=== PATIENT | female | born 1965 | race Two or more races ===

== ENCOUNTER 2017-02-04 10:35 | Inpatient (IN) | payer BC, OTHER ==
[2017-02-04 10:44] VITALS: BMI 29.2
--- NOTE | 2017-02-04 11:17 | EKG ---
Test Reason : Blood Pressure : / mmHG Vent. Rate : 110 BPM Atrial Rate : 110 BPM P-R Int : 142 ms QRS Dur : 082 ms QT Int : 316 ms P-R-T Axes : 052 -06 -03 degrees QTc Int : 427 ms SINUS TACHYCARDIA POSSIBLE LEFT ATRIAL ENLARGEMENT LEFT VENTRICULAR HYPERTROPHY NONSPECIFIC T WAVE ABNORMALITY ABNORMAL ECG WHEN COMPARED WITH ECG OF 01-MAY-2015 12:09, NO SIGNIFICANT CHANGE WAS FOUND Confirmed by TD DIEZ, AGA ([id number]) on 02/04/2017 11:16:49 AM Referred By: Confirmed By:AGA APPIAH MD
--- NOTE | 2017-02-04 11:20 | PDOC ---
*Physical Exam - Vital Signs Last Vital Signs Temp Pulse Resp BP Pulse Ox 98.7 F 120 H 18 131/84 100 02/04/17 10:40 02/04/17 10:40 02/04/17 10:40 02/04/17 10:40 02/04/17 10:40 ED Treatment Course - LABORATORY CBC & Chemistry Diagram: 02/05/17 06:00 02/05/17 06:00 Medical Decision Making - Medical Decision Making 02/04/17 11:19 Patient seen and evaluated with the nurse practitioner. I agree with the overall evaluation, assessment, and management with the following summary of visit: 51y/o F with intermittent chest pain and also n/v/d. Agree with workup and management as outlined, new TWI noted on EKG so will need cardiac workup. *DC/Admit/Observation/Transfer Diagnosis at time of Disposition: Chest pain Qualifiers: Chest pain type: unspecified Qualified Code(s): R07.9 - Chest pain, unspecified Vomiting Qualifiers: Vomiting type: unspecified Vomiting Intractability: unspecified Nausea presence : with nausea Qualified Code(s): R11.2 - Nausea with vomiting, unspecified - Discharge Dispostion Disposition: HOME Condition at time of disposition: Good - Prescriptions
[2017-02-04 11:30] LABS: BASOPHIL 0.3 % (0-2.0); EOSINOPHIL 0.3 % (0-4.5); MCH 29.7 pg (25.7-33.7); MCHC 33.1 g/dl (32.0-36.0); MEAN CELL VOLUME 89.7 fl (80-96); MEAN PLT VOLUME 8.4 fl (7.5-11.1); NEUTROPHILS 82.8 % (42.8-82.8); PLATELET COUNT 245 K/MM3 (134-434); RDW 13.9 % (11.6-15.6); WHITE BLOOD COUNT 11.1 K/mm3 (4.0-10.0)
--- NOTE | 2017-02-04 11:33 | PDOC ---
History of Present Illness - General Chief Complaint: Nausea/Vomiting Stated Complaint: CHEST DISCOMFORT/ HEADACHE/BACK PAIN Time Seen by Provider: 02/04/17 10:47 - History of Present Illness Initial Comments: 02/04/17 11:29 CHIEF COMPLAINT: chest pain, NVD HISTORY OF PRESENT ILLNESS: 51 yo F with hx of HTN, HLD, and migraines presents to ED with chest pain x 2 days and NVD since last night. Patient states that two nights ago she felt "sharp pain to her chest and shooting pain to my left arm, which got better but then came back last night." She reports that she had 3 episodes of vomiting since last night as well as multiple episodes of diarrhea. LMP two months ago No recent travel or sick contacts. PAST MEDICAL HISTORY: Father [place] @ 75, mother [place] @81 FAMILY HISTORY: Denies SOCIAL HISTORY: Denies tobacco, alcohol, illicit drug use. SURGICAL HISTORY: Denies ALLERGIES: No known drug allergies REVIEW OF SYSTEMS General/Constitutional: Denies fever or chills. Denies weakness, weight change. HEENT: Denies change in vision. Denies ear pain or discharge. Denies sore throat. Cardiovascular: Chest pain x 2 days. Denies shortness of breath. Respiratory: Denies cough, wheezing, or hemoptysis. Gastrointestinal:Vomiting and diarrhea since last night. Denies rectal bleeding. Genitourinary: Denies dysuria, frequency, or change in urination. Musculoskeletal: Denies joint or muscle swelling or pain. Denies neck or back pain. Skin and breasts: Denies rash or easy bruising. Neurologic: Denies headache, vertigo, loss of consciousness, or loss of sensation. PHYSICAL EXAM General Appearance: Well-appearing, appropriately dressed. No apparent distress. HEENT: EOMI, PERRLA, normal ENT inspection, normal voice, TMs normal, pharynx normal. No conjunctival pallor. No photophobia, scleral icterus. Neck: Supple. Trachea midline. No tenderness, rigidity, carotid bruit, stridor , lymphadenopathy, or thyromegaly. Respiratory/Chest: Lungs CTAB. Cardiovascular: RRR. S1, S2. Vascular Pulses: Dorsalis-Pedis (R): 2+, Dorsalis-Pedis (L): 2+ Gastrointestinal/Abdominal: Normal bowel sounds. Abdomen soft, non-distended. No tenderness or rebound tenderness. No organomegaly, pulsatile mass, guarding , hernia, hepatomegaly, splenomegaly. Musculoskeletal/Extremities: Normal inspection. FROM of all extremities, normal capillary refill. Pelvis Stable. No CVA tenderness. No tenderness to extremities, pedal edema, swelling, erythema or deformity. Integumentary: Appropriate color, dry, warm. 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 Fully oriented, alert. Appropriate mood/affect. Motor strength 5/5. No appreciable EOM palsy, facial droop or sensory deficit. 02/04/17 11:32 Past History - Past Medical History Allergies/Adverse Reactions: Allergies Allergy/AdvReac Type Severity Reaction Status Date / Time No Known Allergies Allergy Verified 02/04/17 10:41 Home Medications: Ambulatory Orders Atorvastatin Ca [Lipitor] 20 mg PO HS 12/22/14 Losartan 50Mg/Hctz 12.5MG [Hyzaar -] 1 tab PO DAILY 12/22/14 Alprazolam [Xanax] 0.5 mg PO BID #20 tablet 05/01/15 Amitriptyline HCl [Elavil -] 25 mg PO DAILY 02/04/17 HTN: Yes Hypercholesterolemia: Yes Psychiatric Problems: Yes (ANXIETY.) - Surgical History Abdominal Surgery: Yes - Psycho/Social/Smoking Cessation Hx Anxiety: Yes Suicidal Ideation: No Smoking History: Never smoked Hx Alcohol Use: Yes (weekends.) Drug/Substance Use Hx: No Substance Use Type: Alcohol *Physical Exam - Vital Signs Last Vital Signs Temp Pulse Resp BP Pulse Ox 98.7 F 120 H 18 131/84 100 02/04/17 10:40 02/04/17 10:40 02/04/17 10:40 02/04/17 10:40 02/04/17 10:40 Heart Score/ECG Review - History History: Moderately suspicious - Electrocardiogram EKG: Non specific repolarization disturbance - Age Age: 45-65 - Risk Factors Risk Factors Heart Score: Yes Hx Hypercholesterolemia, Yes Hx Hypertension, Yes Positive family hx of cardiac disease Based on the list above the patient has:: >/=3 risk factors or Hx atherosclerotic disease - Troponin Troponin: </= normal limit - Score Heart Score - Total: 5 ED Treatment Course - LABORATORY CBC & Chemistry Diagram: 02/04/17 11:20 02/04/17 11:20 - ADDITIONAL ORDERS Additional order review: Laboratory Results 02/04/17 02/04/17 02/04/17 11:20 11:20 11:00 INR 1.05 Sodium 138 Potassium 4.0 D Chloride 100 Carbon Dioxide 29 D Anion Gap 9 BUN 10 Creatinine 0.8 Creat Clearance w eGFR > 60 Random Glucose 103 D Calcium 9.0 Magnesium 2.2 Total Bilirubin 0.5 D AST 20 D ALT 36 D Alkaline Phosphatase 65 Creatine Kinase 64 Troponin I < 0.02 Total Protein 8.0 Albumin 3.8 Lipase 86 Urine HCG, Qual Negative 02/04/17 11:20 RBC 4.76 MCV 89.7 MCHC 33.1 RDW 13.9 MPV 8.4 Neutrophils % 82.8 D Lymphocytes % 9.9 D Monocytes % 6.7 Eosinophils % 0.3 Basophils % 0.3 - RADIOLOGY Radiology Studies Ordered: Category Date Time Status CHEST PA & LAT [RAD] Stat Radiology 02/04/17 11:01 Taken Medical Decision Making - Medical Decision Making 02/04/17 11:32 51 yo F with hx of HTN, HLD, and migraines presents to ED with chest pain x 2 days and NVD since last night. VS remarkable for HR 120. -EKG, CXR -CBC, CMP, Mg, PT/INR, cardiac profile EKG with new T wave inversions in V3. HEART score - 5 Labs: WBC 11.1, otherwise unremarkable Will admit to obs 02/04/17 12:24 Paged PCP MD Brar. Awaiting CB. 02/04/17 12:42 Discussed case with covering MD Parikh, who accepts patient to inpatient service. Cards consult placed. *DC/Admit/Observation/Transfer Diagnosis at time of Disposition: Chest pain Qualifiers: Chest pain type: unspecified Qualified Code(s): R07.9 - Chest pain, unspecified Vomiting Qualifiers: Vomiting type: unspecified Vomiting Intractability: unspecified Nausea presence : with nausea Qualified Code(s): R11.2 - Nausea with vomiting, unspecified - Discharge Dispostion Admit: Yes - Referrals Referrals: Monica Brar MD [Primary Care Provider] - - Patient Instructions - Post Discharge Activity
[2017-02-04 11:51] LABS: INR 1.05 (0.82-1.09); PROTHROMBIN TIME (PATIENT) 11.6 SEC (9.98-11.88)
[2017-02-04 12:01] LABS: ALBUMIN 3.8 g/dl (3.4-5.0); ANION GAP 9 (8-16); BILIRUBIN,TOTAL 0.5 mg/dL (0.2-1.0); CO2 29 mmol/L (21-32); CREATININE 0.8 mg/dL (0.55-1.02); GLUCOSE,RANDOM 103 mg/dL (74-106); MAGNESIUM 2.2 mg/dL (1.8-2.4); SGOT/AST 20 U/L (15-37); SGPT/ALT 36 U/L (12-78)
[2017-02-04 12:04] LABS: ALK PHOS 65 U/L (45-117); TROPONIN I < 0.02 ng/ml (0.00-0.05)
[2017-02-04] MEDS ORDERED: SODIUM CHLORIDE 0.9% 1000 ML INFUS.BAG IV PRN (13:30)
[2017-02-04] MEDS ORDERED: ACETAMINOPHEN 325 MG TABLET (FP) PO ONE (13:37)
[2017-02-04] MEDS ORDERED: ASPIRIN 81 MG CHEWABLE TABLETS PO ONE (13:37)
[2017-02-04] MEDS ORDERED: ACETAMINOPHEN 325 MG TABLET (FP) ONE (13:45)
[2017-02-04] MEDS ORDERED: ASPIRIN 81 MG CHEWABLE TABLETS ONE (13:45)
[2017-02-04 14:07] LABS: URINE APPEARANCE CLEAR; URINE BILIRUBIN NEGATIVE (NEGATIVE); URINE COLOR YELLOW; URINE GLUCOSE (UA) NEGATIVE (NEGATIVE); URINE KETONE NEGATIVE (NEGATIVE); URINE LEUK ESTERASE NEGATIVE (NEGATIVE); URINE NITRITE NEGATIVE (NEGATIVE); URINE PROTEIN NEGATIVE (NEGATIVE); URINE UROBILINOGEN NEGATIVE E.U./dl (0.2-1.0)
[2017-02-04 14:09] LABS: URINE BLOOD 2+ (NEGATIVE)
[2017-02-04 14:10] LABS: URINE MUCUS RARE; URINE RBC <1 /hpf (0-3); URINE WBC <1 /hpf (3-5)
[2017-02-04 14:18] LABS: VENOUS PH 7.47 (7.32-7.42)
[2017-02-04] MEDS ORDERED: VANCOMYCIN 1,000 MG in DEXTROSE 5%-WATER - 250 ML IVPB ONE (14:20)
[2017-02-04 14:22] LABS: INR 1.08 (0.82-1.09); PROTHROMBIN TIME (PATIENT) 11.9 SEC (9.98-11.88)
[2017-02-04] MEDS ORDERED: CEFTRIAXONE 1 GM in DEXTROSE 5%-WATER - 50 ML IVPB SCH (14:30)
[2017-02-04] MEDS ORDERED: CEFTRIAXONE 50 ML IVPB SCH (15:26)
[2017-02-04] MEDS ORDERED: VANCOMYCIN 1 GRAM (PRE-DOCKED) 250 ML IVPB ONE (16:00)
[2017-02-04] MEDS ORDERED: PATIENT'S OWN MEDICATION (NON-FORMULARY) (Alprazolam [Xanax] 0.5 MG) PO PRN (16:08)
[2017-02-04] MEDS ORDERED: SODIUM CHLORIDE 0.45% 1,000 ML IV SCH (16:15)
--- NOTE | 2017-02-04 16:21 | HP ---
Admitting History and Physical - Primary Care Physician PCP: Monica Brar - Admission Chief Complaint: chest pain History of Present Illness: Developed left arm pain and retrosternal pressure like chest pain almost constant ~2days ago. Last night became nauseated and vomited 4 times with associated watery diarrhea 7 times. In ER febrile, c/o diffuse muscle aches. Of note patient came in because she was concerned about her chest pains, has extensive family h/o CAD. History Source: Patient Limitations to Obtaining History: No Limitations - Past Medical History Cardiovascular: Yes: HTN, Hyperlipdemia ...: No Psych: Yes: Anxiety - Past Surgical History Additional Past Surgical History: left shoulder arthroscopic surgery,several years ago - Smoking History Smoking history: Never smoked - Alcohol/Substance Use Hx Alcohol Use: Yes (weekends.) - Social History ADL: Independent History of Recent Travel: No Home Medications - Allergies Allergies/Adverse Reactions: Allergies Allergy/AdvReac Type Severity Reaction Status Date / Time No Known Allergies Allergy Verified 02/04/17 10:41 - Home Medications Home Medications: Ambulatory Orders Atorvastatin Ca [Lipitor] 20 mg PO HS 12/22/14 Losartan 50Mg/Hctz 12.5MG [Hyzaar -] 1 tab PO DAILY 12/22/14 Alprazolam [Xanax] 0.5 mg PO BID #20 tablet 05/01/15 Amitriptyline HCl [Elavil -] 25 mg PO DAILY 02/04/17 Family Disease History - Family Disease History Family Disease History: Diabetes: Brother, Sister, Heart Disease: Father, Mother , Brother, Sister Review of Systems - Review of Systems Constitutional: reports: Chills, Fever Cardiovascular: reports: Chest Pain Respiratory: denies: Cough, SOB on Exertion, Wheezing Gastrointestinal: reports: Diarrhea, Nausea, Vomiting. denies: Abdominal Pain, Dysphagia, Indigestion, Melena Genitourinary: denies: No Symptoms, Burning Breasts: denies: No Symptoms Reported Musculoskeletal: reports: Back Pain (chronic lower back) Neurological: reports: No Symptoms Endocrine: reports: No Symptoms Physical Examination Vital Signs: Vital Signs Temperature 101.2 F H 02/04/17 14:57 Pulse Rate 112 H 02/04/17 14:57 Respiratory Rate 18 02/04/17 14:57 Blood Pressure 127/77 02/04/17 14:57 O2 Sat by Pulse Oximetry (%) 96 02/04/17 14:57 Constitutional: Yes: Well Nourished, No Distress Eyes: Yes: Conjunctiva Clear HENT: Yes: Normocephalic Neck: Yes: Trachea Midline Cardiovascular: Yes: Regular Rate and Rhythm Respiratory: Yes: CTA Bilaterally Gastrointestinal: Yes: Normal Bowel Sounds, Soft. No: Tenderness, Epigastrium, Tenderness, Rebound Renal/: Yes: WNL Breast(s): Yes: WNL Musculoskeletal: Yes: WNL Extremities: Yes: WNL Edema: No Peripheral Pulses WNL: Yes Integumentary: Yes: WNL Neurological: Yes: WNL Imaging - Results Chest X-ray: Report Reviewed EKG: Image Reviewed (NSSTTwave changes) Problem List - Problems (1) Chest pain Code(s): R07.9 - CHEST PAIN, UNSPECIFIED Qualifiers: Chest pain type: unspecified Qualified Code(s): R07.9 - Chest pain, unspecified (2) Vomiting Code(s): R11.10 - VOMITING, UNSPECIFIED Qualifiers: Vomiting type: unspecified Vomiting Intractability: unspecified Nausea presence: with nausea Qualified Code(s): R11.2 - Nausea with vomiting , unspecified (3) Anxiety Code(s): F41.9 - ANXIETY DISORDER, UNSPECIFIED (4) Diarrhea Code(s): R19.7 - DIARRHEA, UNSPECIFIED Assessment/Plan likely viral gastroenteritis iv hydration repeat lactic bhavna with next cardiac enzymes ID/Card consult requested prn tylenol
[2017-02-04 19:26] LABS: TROPONIN I < 0.02 ng/ml (0.00-0.05)
[2017-02-04] MEDS: AMITRIPTYLINE HCL 25 MG TABLET (FP) PO SCH (21:04)
[2017-02-04] MEDS: ACETAMINOPHEN 325 MG TABLET (FP) PO PRN (21:06)
[2017-02-04] MEDS: ZOLPIDEM TARTRATE 5 MG TABLET PO PRN (21:39)
[2017-02-05] MEDS: ALPRAZolam 0.25 MG TABLET PO PRN ×2 (00:23→22:22)
[2017-02-05 08:37] LABS: BASOPHIL 0.5 % (0-2.0); EOSINOPHIL 1.3 % (0-4.5); MCH 30.2 pg (25.7-33.7); MCHC 33.1 g/dl (32.0-36.0); MEAN CELL VOLUME 91.4 fl (80-96); MEAN PLT VOLUME 9.2 fl (7.5-11.1); NEUTROPHILS 67.8 % (42.8-82.8); PLATELET COUNT 203 K/MM3 (134-434); RDW 13.9 % (11.6-15.6); WHITE BLOOD COUNT 7.2 K/mm3 (4.0-10.0)
[2017-02-05 08:57] LABS: ANION GAP 12 (8-16); BILIRUBIN,TOTAL 0.2 mg/dL (0.2-1.0); CALCIUM 8.2 mg/dL (8.5-10.1); CO2 24 mmol/L (21-32); COCKROFT - GAULT 117.8015; CREATININE 0.6 mg/dL (0.55-1.02); GLUCOSE,RANDOM 97 mg/dL (74-106); SGOT/AST 16 U/L (15-37); SGPT/ALT 29 U/L (12-78); TOT PROT 6.4 g/dl (6.4-8.2)
[2017-02-05 09:00] LABS: ALK PHOS 55 U/L (45-117); TROPONIN I < 0.02 ng/ml (0.00-0.05)
[2017-02-05] MEDS ORDERED: ACETAMINOPHEN WITH CODEINE 300MG/30MG TABLET PO PRN (10:00)
--- NOTE | 2017-02-05 10:03 | PN ---
Progress Note (short form) - Note Progress Note: overall better, still with low grade fever, but less diarrhea, less pain. Vital Signs Period Temp Pulse Resp BP Sys/Monreal Pulse Ox Last 24 Hr 98.7 F-102.6 F 100-123 16-20 106-131/64-84 96-100 S1 S2 RRR Lung cta Abd soft NT +BS no edema Imp diarrhea/fever-viral? chest pain atypical with febrile illness-r/o pericarditis Plan iv fluids check echo in am Problem List - Problems (1) Chest pain Code(s): R07.9 - CHEST PAIN, UNSPECIFIED Qualifiers: Chest pain type: unspecified Qualified Code(s): R07.9 - Chest pain, unspecified (2) Vomiting Code(s): R11.10 - VOMITING, UNSPECIFIED Qualifiers: Vomiting type: unspecified Vomiting Intractability: unspecified Nausea presence: with nausea Qualified Code(s): R11.2 - Nausea with vomiting , unspecified (3) Anxiety Code(s): F41.9 - ANXIETY DISORDER, UNSPECIFIED (4) Diarrhea Code(s): R19.7 - DIARRHEA, UNSPECIFIED
[2017-02-05] MEDS: AMITRIPTYLINE HCL 25 MG TABLET (FP) PO SCH (10:19)
[2017-02-05] MEDS: SODIUM CHLORIDE 0.45%/POT 1,000 ML IV SCH (10:20)
--- NOTE | 2017-02-05 13:21 | CON.CARD ---
Consult Consult Specialty:: Cardiology Referred by:: Dr. Dupree Reason for Consultation:: Cardiac evaluation - History of Present Illness Chief Complaint: Chest pain History of Present Illness: Patient is a 51 year old female with underlying history of HTN, hyperlipidemia who presents to ED with chest pain, but also now with bouts of diarrhea, vomiting and fever. ECG demonstrates sinus tachycardia. She denies paroxysmal nocturnal dyspnea or orthopnea. Denies headache or lightheadedness at this time. No syncopal episode - History Source History Provided By: Patient, Medical Record Limitations to Obtaining History: No Limitations - Past Medical History Cardio/Vascular: Yes: HTN, Hyperlipdemia ...: No Psych: Yes: Anxiety - Past Surgical History Additional Surgical History: Rotator cuff surgery - Alcohol/Substance Use Hx Alcohol Use: Yes (weekends.) - Smoking History Smoking history: Never smoked - Social History ADL: Independent History of Recent Travel: No Home Medications - Allergies Allergies/Adverse Reactions: Allergies Allergy/AdvReac Type Severity Reaction Status Date / Time No Known Allergies Allergy Verified 02/04/17 10:41 - Home Medications Home Medications: Ambulatory Orders Atorvastatin Ca [Lipitor] 20 mg PO HS 12/22/14 Losartan 50Mg/Hctz 12.5MG [Hyzaar -] 1 tab PO DAILY 12/22/14 Alprazolam [Xanax] 0.5 mg PO BID #20 tablet 05/01/15 Amitriptyline HCl [Elavil -] 25 mg PO DAILY 02/04/17 Family Disease History - Family Disease History Family Disease History: Diabetes: Brother, Sister, Heart Disease: Father, Mother , Brother, Sister Review of Systems - Review of Systems Constitutional: reports: Fever. denies: Chills Cardiovascular: reports: Chest Pain. denies: Palpitations, Shortness of Breath Respiratory: denies: Cough, Hemoptysis, Orthopnea, PND, SOB Gastrointestinal: reports: Diarrhea. denies: Abdominal Pain, Constipation, Melena, Nausea, Rectal Bleeding, Vomiting Genitourinary: denies: Dysuria Neurological: denies: Dizziness, Headache, Syncope, Tremors Vital Signs: Vital Signs Temperature 100.6 F H 02/05/17 09:00 Pulse Rate 100 H 02/05/17 05:00 Respiratory Rate 16 02/05/17 05:00 Blood Pressure 109/73 02/05/17 05:00 O2 Sat by Pulse Oximetry (%) 96 02/04/17 23:18 Neck: Yes: Lymphadenopathy Respiratory: Yes: CTA Bilaterally. No: Rhonchi Gastrointestinal: Yes: Normal Bowel Sounds, Soft. No: Tenderness Cardiovascular: Yes: Regular Rate and Rhythm JVD: No Carotid Bruit: No PMI: Displaced Heart Sounds: Yes: S1, S2. No: Gallop Murmur: No: Systolic Murmur, Diastolic Murmur Edema: No - Other Data Labs, Other Data: CBC, BMP 02/05/17 06:00 02/05/17 06:00 INR, PTT INR 1.08 (0.82-1.09) 02/04/17 14:00 Troponin, BNP 02/04/17 02/05/17 18:56 06:00 Troponin I < 0.02 < 0.02 Sinus tachycardia Imaging - Results Chest X-ray: Report Reviewed (Unremarkable) EKG: Report Reviewed Problem List - Problems (1) Chest pain Code(s): R07.9 - CHEST PAIN, UNSPECIFIED Qualifiers: Chest pain type: unspecified Qualified Code(s): R07.9 - Chest pain, unspecified (2) Diarrhea Code(s): R19.7 - DIARRHEA, UNSPECIFIED Qualifiers: Diarrhea type: unspecified type Qualified Code(s): R19.7 - Diarrhea , unspecified (3) Anxiety Code(s): F41.9 - ANXIETY DISORDER, UNSPECIFIED Assessment/Plan 1. Chest pain, rule out CAD 2. HTN 3. Hyperlipidemia 4. Diarrhea and fever, possible viral 5. Anxiety PLAN: 1. Antibiotic coverage 2. Hydration 3. Transthoracic echocardiography to assess LV and valvular function Further plans are to follow Frantz Arredondo MD
--- NOTE | 2017-02-05 15:02 | PN ---
Progress Note (short form) - Note Progress Note: ID Consult dictated Acute gastroenteritis Chest pain syndrome Obtain cultures, stool studies Empiric ceftriaxone
--- NOTE | 2017-02-05 15:44 | CONS ---
DATE OF CONSULTATION: DATE OF DICTATION: 02/05/2017 The patient is a 51-year-old female evaluated for nausea, vomiting, diarrhea, and fever. The patient reports a 1-week history of nausea, vomiting, and nonbloody diarrhea. She developed chest pain syndrome 2 days prior to admission. She presented to the emergency room, where she was noted to have fever of 102.6. She also complained of some muscle aches. The patient has had recurrent episodes of vomiting of gastric contents and nonbloody diarrhea. She reports having 4 loose bowel movements today so far. She denies any hematemesis or vomiting of rosalinda red blood. No melena or hematochezia. She has some crampy abdominal discomfort diffusely. The patient lives at home with her , who is well. He does not have any gastrointestinal symptoms. No known ill contacts. She has not eaten recently at outdoor venues. She denies any travel. No recent antibiotic usage. 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 Past medical history positive for hyperlipidemia, hypertension, migraine headaches. No known allergies. MEDICATIONS: Lipitor, Hyzaar, Xanax, Elavil. SOCIAL HISTORY: Lives at home with her . She is a nonsmoker. Occasional EtOH. SYSTEMS REVIEW: Neurologic: No loss of consciousness, seizure activity, focal weakness. Cardiac: As per HPI. Respiratory: Negative cough or sputum production. Gastrointestinal: As per HPI. Genitourinary: Negative for urinary tract infection. LABORATORY DATA: White count 7.2, neutrophils 67, lymphocytes 20, monocytes 10, eosinophil 1. BUN 5, creatinine 0.6. Urinalysis: Less than 1 white cell, lactic acid 2.6. Liver enzymes normal. Cultures pending. PHYSICAL EXAMINATION: General: She is awake and alert. She is not acutely toxic appearing. Vital Signs: Temperature 100.6. T-max 102.6. Blood pressure 109/73. Pulse 100, regular. Respirations 16 per minute. ENT: Sclerae anicteric. Dry mucous membranes. Heart Sounds: S1, S2. Lungs: Clear. Abdomen: Soft. No tenderness elicited. No mass, rebound or rigidity. Extremities: Negative for edema. IMPRESSION: 1. Acute gastroenteritis. 2. Acute chest pain syndrome. Blood cultures have been obtained. Obtain stool for culture and sensitivity, ova and parasites, and C. difficile, stool for rotavirus and Norovirus. Empiric coverage of enteric pathogens with ceftriaxone pending culture results. Will follow. Thank you for the kind referral. RADHA GONCALVES M.D. [id number]
[2017-02-05] MEDS: CEFTRIAXONE 50 ML IVPB SCH (16:11)
[2017-02-05] MEDS: ACETAMINOPHEN 325 MG TABLET (FP) PO PRN (17:11)
[2017-02-05] MEDS: ZOLPIDEM TARTRATE 5 MG TABLET PO PRN (20:18)
[2017-02-05] MEDS ORDERED: AMITRIPTYLINE HCL 25 MG TABLET (FP) PO SCH (22:00)
--- NOTE | 2017-02-06 00:06 | EKG ---
Test Reason : Blood Pressure : / mmHG Vent. Rate : 098 BPM Atrial Rate : 098 BPM P-R Int : 144 ms QRS Dur : 086 ms QT Int : 346 ms P-R-T Axes : 053 000 000 degrees QTc Int : 441 ms NORMAL SINUS RHYTHM NORMAL ECG WHEN COMPARED WITH ECG OF 04-FEB-2017 10:51, NONSPECIFIC T WAVE ABNORMALITY NO LONGER EVIDENT IN ANTEROLATERAL LEADS Confirmed by TD DIEZ, AGA ([id number]) on 02/06/2017 12:06:09 AM Referred By: Meng GRANT Confirmed By:AGA APPIAH MD
[2017-02-06] MEDS: CEFTRIAXONE 50 ML IVPB SCH (09:53)
[2017-02-06] MEDS: ACETAMINOPHEN 325 MG TABLET (FP) PO PRN (09:54)
[2017-02-06] MEDS: SODIUM CHLORIDE 0.45%/POT 1,000 ML IV SCH (09:54)
--- NOTE | 2017-02-06 11:35 | PN ---
Progress Note, Physician Chief Complaint: Feels better History of Present Illness: Patient was seen and examined. Awake and alert. Chart was reviewed Denies chest pain, SOB or palpitations. - Current Medication List Current Medications: Active Medications Acetaminophen (Tylenol -) 650 mg PO Q4H PRN PRN Reason: FEVER OR PAIN Last Admin: 02/06/17 09:54 Dose: 650 mg Acetaminophen/Codeine Phosphate (Tylenol # 3 -) 1 tab PO Q6H PRN PRN Reason: FEVER OR PAIN Last Admin: 02/05/17 10:16 Dose: 1 tab Alprazolam (Xanax -) 0.5 mg PO Q12H PRN Last Admin: 02/05/17 22:22 Dose: 0.5 mg Amitriptyline HCl (Elavil -) 25 mg PO HS [facility] Last Admin: 02/05/17 21:11 Dose: 25 mg Potassium Chloride/Sodium Chloride (1/2ns+20meq Kcl) 1,000 mls @ 75 mls/hr IV ASDIR [facility] Last Admin: 02/06/17 09:54 Dose: 75 mls/hr Ceftriaxone Sodium (Rocephin 1gm Ivpb (Pre-Docked)) 50 mls @ 100 mls/hr IVPB DAILY [facility] Last Admin: 02/06/17 09:53 Dose: 100 mls/hr Zolpidem Tartrate (Ambien -) 5 mg PO HS PRN PRN Reason: INSOMNIA Last Admin: 02/05/17 20:18 Dose: 5 mg - Objective Vital Signs: Vital Signs Temperature 98.9 F 02/06/17 08:00 Pulse Rate 90 02/06/17 08:00 Respiratory Rate 16 02/06/17 08:00 Blood Pressure 117/69 02/06/17 08:00 O2 Sat by Pulse Oximetry (%) 98 02/05/17 22:48 Neck: Yes: Supple Cardiovascular: Yes: Regular Rate and Rhythm, S1, S2 Respiratory: Yes: CTA Bilaterally Gastrointestinal: Yes: Normal Bowel Sounds, Soft. No: Tenderness Edema: No Additional Findings/Remarks: - Review of Systems Constitutional: reports: Fever. denies: Chills Cardiovascular: reports: Chest Pain. denies: Palpitations, Shortness of Breath Respiratory: denies: Cough, Hemoptysis, Orthopnea, PND, SOB Gastrointestinal: reports: Diarrhea. denies: Abdominal Pain, Constipation, Melena, Nausea, Rectal Bleeding, Vomiting Genitourinary: denies: Dysuria Neurological: denies: Dizziness, Headache, Syncope, Tremors Labs: CBC, BMP 02/05/17 06:00 02/05/17 06:00 Problem List - Problems (1) Chest pain Code(s): R07.9 - CHEST PAIN, UNSPECIFIED Qualifiers: Chest pain type: unspecified Qualified Code(s): R07.9 - Chest pain, unspecified (2) Diarrhea Code(s): R19.7 - DIARRHEA, UNSPECIFIED Qualifiers: Diarrhea type: unspecified type Qualified Code(s): R19.7 - Diarrhea , unspecified (3) Anxiety Code(s): F41.9 - ANXIETY DISORDER, UNSPECIFIED Assessment/Plan 1. Chest pain - atypical 2. HTN 3. Hyperlipidemia 4. Diarrhea and fever, probable gastroenteritis ?viral 5. Anxiety PLAN: 1. Antibiotic coverage 2. Hydration 3. Transthoracic echocardiography to assess LV and valvular function 4. ID input noted Further plans are to follow Frantz Arredondo MD
[2017-02-06 14:22] VITALS: BP 106/66; PULSE 85; TEMP 98.5
--- NOTE | 2017-02-06 14:29 | DS ---
Physical Examination Vital Signs: Vital Signs Temperature 98.5 F 02/06/17 14:00 Pulse Rate 85 02/06/17 14:00 Respiratory Rate 20 02/06/17 14:00 Blood Pressure 106/66 02/06/17 14:00 O2 Sat by Pulse Oximetry (%) 98 02/05/17 22:48 Constitutional: Yes: No Distress, Calm Eyes: Yes: EOM Intact HENT: Yes: Normocephalic Neck: Yes: Trachea Midline Cardiovascular: Yes: Regular Rate and Rhythm Respiratory: Yes: CTA Bilaterally Gastrointestinal: Yes: Normal Bowel Sounds, Soft Edema: No Peripheral Pulses WNL: Yes Integumentary: Yes: WNL ...Motor Strength: WNL Labs: CBC, BMP 02/05/17 06:00 02/05/17 06:00 Discharge Summary Reason For Visit: CHEST PAIN/ VOMITTING Current Active Problems Chest pain (Acute) Diarrhea (Acute) Vomiting (Acute) Hospital Course: Admitted for atypical chest pains, serial cardiac enzymes and EKG and echo were normal. Incidentally developed nausea, vomiting, diarrhea and high grade fevers, improved with iv ceftriaxone and hydration. Feels much better today, medically stable to dc home with outpt f/up. Recommend outpt screening colonoscopy once recovered in about 1 month. Condition: Good - Instructions Diet, Activity, Other Instructions: dr conley within 1 week no-dairy bland diet Referrals: Monica Conley MD [Primary Care Provider] - Disposition: HOME - Home Medications Comprehensive Discharge Medication List: Ambulatory Orders Atorvastatin Ca [Lipitor] 20 mg PO HS 12/22/14 Losartan 50Mg/Hctz 12.5MG [Hyzaar -] 1 tab PO DAILY 12/22/14 Alprazolam [Xanax] 0.5 mg PO BID #20 tablet 05/01/15 Amitriptyline HCl [Elavil -] 25 mg PO DAILY 02/04/17 levaquin 500 metronidazole 500 tid for 5 more days
--- NOTE | 2017-02-06 14:34 | PN ---
Progress Note, Physician History of Present Illness: Awake,alert No c/o chest pain No N/V On loose BM today Temps down- afebrile - Current Medication List Current Medications: Active Medications Acetaminophen (Tylenol -) 650 mg PO Q4H PRN PRN Reason: FEVER OR PAIN Last Admin: 02/06/17 09:54 Dose: 650 mg Acetaminophen/Codeine Phosphate (Tylenol # 3 -) 1 tab PO Q6H PRN PRN Reason: FEVER OR PAIN Last Admin: 02/05/17 10:16 Dose: 1 tab Alprazolam (Xanax -) 0.5 mg PO Q12H PRN Last Admin: 02/05/17 22:22 Dose: 0.5 mg Amitriptyline HCl (Elavil -) 25 mg PO HS CECELIA Last Admin: 02/05/17 21:11 Dose: 25 mg Potassium Chloride/Sodium Chloride (1/2ns+20meq Kcl) 1,000 mls @ 75 mls/hr IV [facility] Last Admin: 02/06/17 09:54 Dose: 75 mls/hr Ceftriaxone Sodium (Rocephin 1gm Ivpb (Pre-Docked)) 50 mls @ 100 mls/hr IVPB DAILY [facility] Last Admin: 02/06/17 09:53 Dose: 100 mls/hr Zolpidem Tartrate (Ambien -) 5 mg PO HS PRN PRN Reason: INSOMNIA Last Admin: 02/05/17 20:18 Dose: 5 mg - Objective Vital Signs: Vital Signs Temperature 98.5 F 02/06/17 14:00 Pulse Rate 85 02/06/17 14:00 Respiratory Rate 20 02/06/17 14:00 Blood Pressure 106/66 02/06/17 14:00 O2 Sat by Pulse Oximetry (%) 98 02/05/17 22:48 Constitutional: Yes: No Distress Eyes: Yes: Conjunctiva Clear Cardiovascular: Yes: Regular Rate and Rhythm, S1, S2 Respiratory: Yes: CTA Bilaterally Gastrointestinal: Yes: Normal Bowel Sounds, Soft. No: Tenderness Extremities: Yes: Other Labs: CBC, BMP 02/05/17 06:00 02/05/17 06:00 INR, PTT INR 1.08 (0.82-1.09) 02/04/17 14:00 Assessment/Plan Acute gastroenteritis- improved Fever/ leukocytosis- resolved Chest pain syndrome Substitute levaquin 5oomg po qd + flagyl 5oomg tid x 7d
== END 2017-02-06 15:07 | disposition home or self-care (01) | DRG 392 ==
LOC: JER 10:35 → SUPCPDRO 10:35 → JERBED 12:43 → J4W 14:47 → OBSVTOIN 16:25
PROVIDERS: ADMIT Internal Medicine; ATTEND Internal Medicine
DX: K52.9 Noninfective gastroenteritis and colitis, unspecified (principal); R07.89 Other chest pain; D72.829 Elevated white blood cell count, unspecified; F41.9 Anxiety disorder, unspecified; E78.5 Hyperlipidemia, unspecified; I10 Essential (primary) hypertension
CPT/HCPCS: 36415; 71020-TC; 80053; 81003; 81015; 82550; 82803; 83605; 83690; 83735; 84484; 84703; 85025; 85610; 85730; 86850; 86900; 86901; 87040; 87086; 87254; 87804; 93005; 93010; 93306-TC; 99285-25; G0378; J3480